=== PATIENT | female | born 1955 | race Caucasian/White ===

== ENCOUNTER 2021-11-27 10:27 | Emergency (ER) | payer BC ==
[~2021-11-27] VITALS: Ht 170.2 cm; Wt 95.3 kg
[2021-11-27 10:27] VITALS: BP_SYST 135
[2021-11-27] MEDS ORDERED: MORPHINE SULFATE 10 MG/ML VIAL IM ONE (10:45)
[2021-11-27] MEDS ORDERED: IBUP-1969 PO (11:43)
[2021-11-27] MEDS ORDERED: TRAM50TA2 PO (11:43)
[2021-11-27] MEDS ORDERED: IBUPROFEN 600 MG TABLET PO ONE (11:45)
[2021-11-27 13:37] VITALS: BP_SYST 132
== END 2021-11-27 13:38 | disposition home or self-care (01) ==
LOC: SED 10:27
DX: S20.211A Contusion of right front wall of thorax, initial encounter (principal); Z79.899 Other long term (current) drug therapy; X58.XXXA Exposure to other specified factors, initial encounter; Y93.89 Activity, other specified; Y92.89 Other specified places as the place of occurrence of the external cause; Y99.8 Other external cause status
CPT/HCPCS: 71100; 71250-TC; 76376; 99284